=== PATIENT | female | born 1975 | race African-American/Black ===

== ENCOUNTER 2017-06-19 14:28 | Emergency (ER) | payer BC ==
[~2017-06-19] VITALS: Ht 175.3 cm; Wt 72.6 kg
[2017-06-19] MEDS ORDERED: HYDROCODONE/APAP 10MG-325MG TAB PO ONE (14:45)
--- NOTE | 2017-06-19 17:11 | Diagnostic Imaging Report ---
PROCEDURE:X-RAY LEFT KNEE, THREE OR MORE VIEWS COMPARISON:None. INDICATIONS:RIGHT KNEE INJURY FINDINGS: The bones are well-mineralized. There are no fractures, subluxations, lytic or blastic lesions. There is no evidence of a joint effusion. CONCLUSION: No acute osseous abnormalities. Dictated by: Wesley Slaughter M.D. on 06/19/2017 at 17:12 Electronically approved by: Wesley Slaughter M.D. on 06/19/2017 at 17:12
[2017-06-19 17:38] VITALS: BP 178/90
== END 2017-06-19 17:35 | disposition home or self-care (01) ==
LOC: ER 14:31
DX: M25.562 Pain in left knee (principal); M79.662 Pain in left lower leg; R26.2 Difficulty in walking, not elsewhere classified; I10 Essential (primary) hypertension
CPT/HCPCS: 93971; 99284

== ENCOUNTER → 2017-06-30 | Outpatient (CLI) | payer BC ==
--- NOTE | 2017-07-04 09:12 | Diagnostic Imaging Report ---
ADDENDUM #1 Right knee MRI without contrast. History: Knee pain. Lateral meniscus tear. Decreased range of motion. Swelling. Pain worse with walking. Comparison: None. Technique: Multiplanar multi-sequence MRI of the knee without contrast. Findings: Medial compartment: No meniscal tear, cartilage abnormality, or MCL tear. Lateral compartment: No meniscal tear or cartilage abnormality. The LCL complex is normal. Intercondylar notch: The ACL and PCL are intact. Patellofemoral compartment: No chondromalacia or patellar dislocation. Extensor mechanism: The quadriceps and patellar tendons are normal. Other findings: There is a joint effusion and synovitis. There is no acute fracture, subluxation or avascular necrosis. There is a lobulated septated Saini's cyst with evidence of partial rupture into the posterior soft tissues. IMPRESSION: Lobulated septated Saini's cyst with evidence of partial rupture into the posterior soft tissues. No meniscal tear, collateral ligament tear or cruciate ligament tear. Joint effusion and synovitis. Signed by: Dr. Carlitos Infante M.D. on 07/04/2017 2:54 PM ORIGINAL REPORT Left knee MRI without contrast. History: Knee pain. Lateral meniscus tear. Decreased range of motion. Swelling. Pain worse with walking. Comparison: None. Technique: Multiplanar multi-sequence MRI of the knee without contrast. Findings: Medial compartment: No meniscal tear, cartilage abnormality, or MCL tear. Lateral compartment: No meniscal tear or cartilage abnormality. The LCL complex is normal. Intercondylar notch: The ACL and PCL are intact. Patellofemoral compartment: No chondromalacia or patellar dislocation. Extensor mechanism: The quadriceps and patellar tendons are normal. Other findings: There is a joint effusion and synovitis. There is no acute fracture, subluxation or avascular necrosis. There is a lobulated septated Saini's cyst with evidence of partial rupture into the posterior soft tissues. IMPRESSION: Lobulated septated Saini's cyst with evidence of partial rupture into the posterior soft tissues. No meniscal tear, collateral ligament tear or cruciate ligament tear. Joint effusion and synovitis. Signed by: Dr. Carlitos Infante M.D. on 07/04/2017 9:08 AM
== END ==
LOC: MRI 10:44
PROVIDERS: ATTEND Specialist
DX: S83.281A Other tear of lateral meniscus, current injury, right knee, initial encounter (principal)

== ENCOUNTER → 2018-01-02 | Outpatient (CLI) | payer BC ==
--- NOTE | 2018-01-03 09:05 | Diagnostic Imaging Report ---
#[id number] - MGDXBIL #BILATERAL DIGITAL DIAGNOSTIC MAMMOGRAM WITH CAD: 01/02/2018 Comparison is made to exam dated: 07/11/2012 mammogram - [facility]. Current study contains 6 films. The tissue of both breasts is heterogeneously dense. This may lower the sensitivity of mammography. Current study was also evaluated with a Computer Aided Detection (CAD) system. A marker has been placed on the skin adjacent to a mole in the right axilla. No associated mass is seen. No significant masses, calcifications, or other findings are seen in either breast. There has been no significant interval change. IMPRESSION: BENIGN There is no mammographic evidence of malignancy. A 1 year screening mammogram is recommended. The patient will be notified by letter of the results. Suraj Gregory Jr., D.O. cw/:01/02/2018 13:20:11 Hands Parter: Ingrid NYE(Zac)([place]), [facility] letter sent: Normal Exam Mammogram BI-RADS: 2 Benign
--- NOTE | 2018-01-03 09:05 | Diagnostic Imaging Report ---
#[id number] - USBRELIMRT ULTRASOUND OF THE RIGHT BREAST : 01/02/2018 Comparison is made to exams dated: 01/02/2018 mammogram and 07/11/2012 mammogram - [facility]. Color flow and real-time ultrasound were performed on the right breast in the area where the patient feels pain near the axilla. -There is a prominent lymph node measuring 1.9 x 0.8 x 0.9 cm in the region that the patient feels pain. This lymph node has normal morphology and does not appear abnormal. IMPRESSION: BENIGN There is no sonographic evidence of malignancy. A 1 year screening mammogram is recommended. Suraj Gregory Jr., D.O. cw/:01/02/2018 13:19:08 Free Lance Artist: Cristobal Grijalva RDMS, [facility] letter sent: Normal Exam Ultrasound BI-RADS: 2 Benign
== END ==
LOC: MAMMO 10:10
PROVIDERS: ATTEND Specialist
DX: N64.59 Other signs and symptoms in breast (principal)
CPT/HCPCS: 77066